=== PATIENT | female | born 1960 | race Caucasian/White ===

== ENCOUNTER → 2018-06-30 08:16 | Outpatient (CLI) | payer MEDICARE, MEDICAID ==
[2015-10-19 15:17] VITALS: BMI 26.6
[~2018-06-30 08:16] MED LIST: ALDACTONE100 MG PO; CELEXA10 MG; HYDROCODONE-APA1 TAB PO; KLOR-CON M2020 MEQ PO; LASIX20 MG PO; ULTRAM50 MG PO
== END | disposition home or self-care (01) ==
LOC: D.US 08:16
DX: R10.11 Right upper quadrant pain (principal)

== ENCOUNTER 2018-11-13 08:00 | Outpatient (CLI) | payer MEDICARE, MEDICAID ==
[2015-10-19 15:17] VITALS: BMI 26.6
== END 2018-11-13 09:00 | disposition home or self-care (01) ==
LOC: D.MAMMO 08:00
DX: Z12.31 Encounter for screening mammogram for malignant neoplasm of breast (principal)